=== PATIENT | male | born 1985 | race Caucasian/White ===

== ENCOUNTER 2016-11-28 17:23 | Emergency (ER) | payer BC, OTHER ==
[2016-11-28 18:19] VITALS: RESP 18
[2016-11-28] MEDS ORDERED: ONDANSETRON 4 MG/2 ML VIAL IVP STA (18:45)
[2016-11-28] MEDS ORDERED: SODIUM CHLORIDE 0.9% 1,000 ML IV STA (18:45)
[2016-11-28] MEDS ORDERED: METOCLOPRAMIDE 5 MG/ML 2 ML VIAL IVP STA (18:58)
[2016-11-28] MEDS ORDERED: diphenhydrAMINE 50 MG/ML 1 ML VIAL IVP STA (18:58)
[2016-11-28] MEDS ORDERED: ACETAMINOPHEN IV (For NPO) 1,000 MG in EMPTY BAG 1 BAG IVPB STA (18:59)
--- NOTE | 2016-11-28 19:01 | ED ---
General Adult HPI - General Chief complaint: Nausea/Vomiting/Diarrhea Stated complaint: Fever/nausea Time Seen by Provider: 11/28/16 18:45 Source: patient, RN notes reviewed Mode of arrival: ambulatory Limitations: no limitations - History of Present Illness Initial comments: Patient is a 31-year-old male chief complaint of one day of severe nausea, vomiting and diarrhea. He also reports that he has diffuse abdominal pain due to the amount of times he vomited. He states that he was seen in urgent care and was tested negative for the flu. He states that he has not been able to take any Motrin or Tylenol. Patient states that he is continuing to have a fever. He states that everywhere is hurting. He denies any blood in stools. He states that he was discharged from the urgent care with Zofran however does not help. Patient states that he has a history of a hiatal hernia which she takes omeprazole for acid reflux. Patient denies any other surgical or medical history. He denies any history of sick contacts. - Related Data Home Medications Medication Instructions Recorded Confirmed Ibuprofen [Motrin] 800 mg PO Q8H PRN 11/28/16 11/28/16 Omeprazole 40 mg PO DAILY 11/28/16 11/28/16 Ondansetron HCl [Zofran] 4 mg PO Q8H 11/28/16 11/28/16 Allergies Allergy/AdvReac Type Severity Reaction Status Date / Time No Known Allergies Allergy Verified 11/28/16 19:19 Review of Systems ROS Statement: Those systems with pertinent positive or pertinent negative responses have been documented in the HPI. ROS Other: All systems not noted in ROS Statement are negative. Past Medical History Additional Past Medical History / Comment(s): GI BLEED , HERNIA History of Any Multi-Drug Resistant Organisms: None Reported Past Surgical History: No Surgical Hx Reported Past Psychological History: No Psychological Hx Reported Smoking Status: Never smoker Past Alcohol Use History: None Reported Past Drug Use History: None Reported General Exam - General Exam Comments Initial Comments: Pleasant 31-year-old male. Patient does appear to be in discomfort. Limitations: no limitations General appearance: alert, in no apparent distress Head exam: Present: atraumatic, normocephalic, normal inspection Eye exam: Present: normal appearance, PERRL, EOMI. Absent: scleral icterus, conjunctival injection, periorbital swelling ENT exam: Present: normal exam, mucous membranes moist Neck exam: Present: normal inspection. Absent: tenderness, meningismus, lymphadenopathy Respiratory exam: Present: normal lung sounds bilaterally. Absent: respiratory distress, wheezes, rales, rhonchi, stridor Cardiovascular Exam: Present: regular rate, normal rhythm, normal heart sounds. Absent: systolic murmur, diastolic murmur, rubs, gallop, clicks GI/Abdominal exam: Present: soft, tenderness (diffuse abdominal tenderness. ), normal bowel sounds, other. Absent: distended, guarding, rebound, rigid Extremities exam: Present: normal inspection, full ROM, normal capillary refill. Absent: tenderness, pedal edema, joint swelling, calf tenderness Back exam: Present: normal inspection Neurological exam: Present: alert, oriented X3, CN II-XII intact Psychiatric exam: Present: normal affect, normal mood Skin exam: Present: warm, dry, intact, normal color. Absent: rash Course Vital Signs 11/28/16 11/28/16 11/28/16 18:13 21:03 22:15 Temperature 100.9 F H 99.1 F 97.8 F Pulse Rate 104 H 101 H Respiratory 18 18 Rate Blood Pressure 99/67 131/66 O2 Sat by Pulse 97 95 Oximetry Medical Decision Making - Medical Decision Making Patient is a 31-year-old male chief complaint of one day of severe nausea, vomiting and diarrhea. He also reports that he has diffuse abdominal pain due to the amount of times he vomited. He states that he was seen in urgent care and was tested negative for the flu. He states that he has not been able to take any Motrin or Tylenol. Patient states that he is continuing to have a fever. He states that everywhere is hurting. He denies any blood in stools. He states that he was discharged from the urgent care with Zofran however does not help. Patient states that he has a history of a hiatal hernia which she takes omeprazole for acid reflux. Patients labs were reviewed, elevated lactic of 2.3. RElated to dehydration and vomiting. Given PAtients fever and diffuse tenderness, CT scan obtained. CT negative for any acute process. PAtient reports he is feeling much better after fluids. Patietn will be discharged at this time. Discussed viral gastroenteritis, and to continue to take motrin and tylenol and take prescription of zofran from urgent care. Patient understands treatment plan and will comply. Return parameters discussed. - Lab Data Result diagrams: 11/28/16 19:34 11/28/16 19:34 Lab Results 11/28/16 11/28/16 11/28/16 Range/Units 19:34 19:34 19:34 WBC 9.7 (3.8-10.6) k/uL RBC 5.81 (4.30-5.90) m/uL Hgb 17.4 (13.0-17.5) gm/dL Hct 50.1 (39.0-53.0) % MCV 86.3 (80.0-100.0) fL MCH 29.9 (25.0-35.0) pg MCHC 34.7 (31.0-37.0) g/dL RDW 13.1 (11.5-15.5) % Plt Count 252 (150-450) k/uL Neutrophils % 90 % Lymphocytes % 5 % Monocytes % 4 % Eosinophils % 0 % Basophils % 0 % Neutrophils # 8.7 H (1.3-7.7) k/uL Lymphocytes # 0.5 L (1.0-4.8) k/uL Monocytes # 0.4 (0-1.0) k/uL Eosinophils # 0.0 (0-0.7) k/uL Basophils # 0.0 (0-0.2) k/uL Sodium 143 (137-145) mmol/L Potassium 4.1 (3.5-5.1) mmol/L Chloride 103 (98-107) mmol/L Carbon Dioxide 24 (22-30) mmol/L Anion Gap 16 mmol/L BUN 18 (9-20) mg/dL Creatinine 1.30 H (0.66-1.25) mg/dL Est GFR (MDRD) Af Amer >60 (>60 ml/min/1.73 sqM) Est GFR (MDRD) Non-Af >60 (>60 ml/min/1.73 sqM) Glucose 114 H (74-99) mg/dL Plasma Lactic Acid Luis 2.5 H* (0.7-2.0) mmol/L Calcium 9.4 (8.4-10.2) mg/dL Total Bilirubin 1.4 H (0.2-1.3) mg/dL AST 38 (17-59) U/L ALT 73 H (21-72) U/L Alkaline Phosphatase 105 (38-126) U/L Total Protein 8.0 (6.3-8.2) g/dL Albumin 4.7 (3.5-5.0) g/dL Amylase 55 (30-110) U/L Lipase 108 (23-300) U/L Influenza Type A RNA (Not Detectd) Influenza Type B (PCR) (Not Detectd) 11/28/16 Range/Units 19:34 WBC (3.8-10.6) k/uL RBC (4.30-5.90) m/uL Hgb (13.0-17.5) gm/dL Hct (39.0-53.0) % MCV (80.0-100.0) fL MCH (25.0-35.0) pg MCHC (31.0-37.0) g/dL RDW (11.5-15.5) % Plt Count (150-450) k/uL Neutrophils % % Lymphocytes % % Monocytes % % Eosinophils % % Basophils % % Neutrophils # (1.3-7.7) k/uL Lymphocytes # (1.0-4.8) k/uL Monocytes # (0-1.0) k/uL Eosinophils # (0-0.7) k/uL Basophils # (0-0.2) k/uL Sodium (137-145) mmol/L Potassium (3.5-5.1) mmol/L Chloride (98-107) mmol/L Carbon Dioxide (22-30) mmol/L Anion Gap mmol/L BUN (9-20) mg/dL Creatinine (0.66-1.25) mg/dL Est GFR (MDRD) Af Amer (>60 ml/min/1.73 sqM) Est GFR (MDRD) Non-Af (>60 ml/min/1.73 sqM) Glucose (74-99) mg/dL Plasma Lactic Acid Luis (0.7-2.0) mmol/L Calcium (8.4-10.2) mg/dL Total Bilirubin (0.2-1.3) mg/dL AST (17-59) U/L ALT (21-72) U/L Alkaline Phosphatase (38-126) U/L Total Protein (6.3-8.2) g/dL Albumin (3.5-5.0) g/dL Amylase (30-110) U/L Lipase (23-300) U/L Influenza Type A RNA Not Detected (Not Detectd) Influenza Type B (PCR) Not Detected (Not Detectd) - Radiology Data Radiology results: report reviewed CT abdomen and pelvis is negative for any acute process. Disposition Clinical Impression: Dehydration, Gastroenteritis Disposition: HOME SELF-CARE Condition: Good Instructions: Acute Nausea and Vomiting (ED) Additional Instructions: Continue to take prescription prescribed nausea medication. Follow-up with a primary care provider. Return to emergency department if any alarming signs or symptoms occur. Continue using Motrin Tylenol for pain. Referrals: Jazlyn Epstein MD [STAFF PHYSICIAN] - 1-2 days Time of Disposition: 21:20
[2016-11-28 19:57] LABS: Basophils % (A) 0 %; CH 29.5; CHCM 34.3; Eosinophils % (A) 0 %; HCT 50.1 % (39.0-53.0); HDW 2.52; HGB 17.4 gm/dL (13.0-17.5); Luc # (Auto) 0.06; Luc % (Auto) 1; Lymphocytes # (A) 0.5 k/uL (1.0-4.8); Lymphocytes % (A) 5 %; MCH 29.9 pg (25.0-35.0); MCHC 34.7 g/dL (31.0-37.0); MCV 86.3 fL (80.0-100.0); Mean Platelet Volume 7.1; Monocytes # (A) 0.4 k/uL (0-1.0); Monocytes % (A) 4 %; Neutrophils # (A) 8.7 k/uL (1.3-7.7); Neutrophils % (A) 90 %; RBC 5.81 m/uL (4.30-5.90); RDW 13.1 % (11.5-15.5); WBC 9.7 k/uL (3.8-10.6); WBC (Perox) 9.89
[2016-11-28 20:04] LABS: ALT 73 U/L (21-72); AST 38 U/L (17-59); Alkaline Phosphatase 105 U/L (38-126); Amylase 55 U/L (30-110); Anion Gap 16 mmol/L; Blood Urea Nitrogen 18 mg/dL (9-20); Calcium 9.4 mg/dL (8.4-10.2); Carbon Dioxide 24 mmol/L (22-30); Chloride 103 mmol/L (98-107); Glucose 114 mg/dL (74-99); Non-African American GFR(MDRD) >60 (>60 ml/min/1.73 sqM); Potassium 4.1 mmol/L (3.5-5.1); Sodium 143 mmol/L (137-145); Total Bilirubin 1.4 mg/dL (0.2-1.3)
--- NOTE | 2016-11-28 20:17 | XR ---
EXAMINATION TYPE: XR chest 2V DATE OF EXAM: 11/28/2016 8:03 PM COMPARISON: NONE HISTORY: Pain and nausea and vomiting TECHNIQUE: Frontal and lateral views of the chest are obtained. FINDINGS: There is no focal air space opacity, pleural effusion, or pneumothorax seen. The cardiac silhouette size is within normal limits. The osseous structures are intact. IMPRESSION: No acute cardiopulmonary process.
[2016-11-28] MEDS ORDERED: RX INFO: IV CONTRAST WAS GIVEN 1 EACH MISC MISCELLANE PRN (20:19)
--- NOTE | 2016-11-28 20:19 | XR ---
EXAMINATION TYPE: XR KUB DATE OF EXAM: 11/28/2016 8:03 PM COMPARISON: NONE HISTORY: Pain and nausea and vomiting TECHNIQUE: 2 upright views FINDINGS: There are scattered 1 to 2 cm gas bubbles in what appears to be nondilated bowel, both smal l and large bowel. The pattern suggests fluid-filled bowel. There is no pneumatosis and no pneumoperitoneum. The soft tissues and skeletal structures are unremarkable. IMPRESSION: NO DEFINITE ACUTE PROCESS, ALTHOUGH RADIOGRAPHIC FEATURES CAN CORRELATE WITH A CLINICAL D IAGNOSIS OF GASTROENTERITIS.
[2016-11-28] MEDS ORDERED: SODIUM CHLORIDE 0.9% 1,000 ML IV ONE (20:20)
--- NOTE | 2016-11-28 21:14 | CT ---
EXAMINATION TYPE: CT abdomen pelvis w con DATE OF EXAM: 11/28/2016 8:46 PM COMPARISON: NONE HISTORY: Pt states of vomiting today. CT DLP: 1701 mGycm Automated exposure control for dose reduction was used. TECHNIQUE: Helical acquisition of images was performed from the lung bases through the pelvis. CONTRAST: Performed without Oral Contrast and with IV Contrast, patient injected with 100 mL of Omnip aque 300. FINDINGS: LUNG BASES: No significant abnormality is appreciated. LIVER/GB: No significant abnormality is appreciated. PANCREAS: No significant abnormality is seen. SPLEEN: No significant abnormality is seen. ADRENALS: No significant abnormality is seen. KIDNEYS: No significant abnormality is seen. RETROPERITONEAL ADENOPATHY: None visualized REPRODUCTIVE ORGANS: No significant abnormality is seen URINARY BLADDER: No significant abnormality is seen. PELVIC ADENOPATHY: None visualized. OSSEOUS STRUCTURES: No significant abnormality is seen. BOWEL: No significant abnormality is seen. IMPRESSION: NO ACUTE PROCESS.
[2016-11-28 22:16] VITALS: BP 131/66; PULSE 101; TEMP 97.8
== END 2016-11-28 22:15 | disposition home or self-care (01) ==
LOC: EC 17:23
DX: E86.0 Dehydration (principal); K52.9 Noninfective gastroenteritis and colitis, unspecified; Z79.899 Other long term (current) drug therapy
CPT/HCPCS: 36415; 80053; 82150; 83605; 83690; 85025; 87040; 87502; 71020; 74000; 74177; 99284; 96365; 96375 ×3; 96361; J1200; J2765; Q9967; J0131

== ENCOUNTER 2017-10-17 23:13 | Observation (INO) | payer BC, OTHER ==
[2017-10-17] MEDS ORDERED: SODIUM CHLORIDE 0.9% 1,000 ML IV STA (23:34)
[2017-10-17] MEDS ORDERED: ONDANSETRON 4 MG/2 ML VIAL IVP STA (23:34)
[2017-10-17] MEDS ORDERED: HYDROmorphone 0.5 MG/0.5 ML SYRINGE IVP STA (23:34)
[2017-10-17] MEDS ORDERED: MAG HYDROX/AL HYDROX/SIMETH 30 ML, HYOSCYAMINE ELIXIR 10 ML, CIMETIDINE HCL 300 MG, LID... PO STA ×4 (23:36)
--- NOTE | 2017-10-17 23:41 | ED ---
General Adult HPI <Trung Lopez - Last Filed: 10/18/17 02:15> - General Source: patient, RN notes reviewed Mode of arrival: ambulatory Limitations: no limitations <My Fatima - Last Filed: 10/18/17 02:53> - General Chief complaint: Chest Pain Stated complaint: chest pain Time Seen by Provider: 10/17/17 23:20 - History of Present Illness Initial comments: This is a 32-year-old male who presents to the emergency department with chief complaint of chest pain. Patient states that around 1 PM this afternoon he began to experience central chest/epigastric pain. He states that at 9 PM this evening he began vomiting. He states that at first it was brownish in color and then became pink. Patient states that he has a history of hiatal hernias and GI ulcers. He states that he has had episodes like this in the past when he has had a "rupture" of his hernia or ulcer. Patient states that the pain is constant and rates it as 8/10. He has intermittent sharp pain occurring every few seconds that he rates as 15/10. Patient does have a fever on presentation. He denies any recent fevers at home. He states that he has normal bowel habits. Denies any diarrhea or constipation. He states that he has been seen for his GI problems but has never had any abdominal surgeries. He states that he currently takes omeprazole and ibuprofen 800 for his knees. Denies shortness of breath, dizziness or headache. (My Fatima) - Related Data Home Medications Medication Instructions Recorded Confirmed Ibuprofen [Motrin] 800 mg PO BID PRN 11/28/16 10/17/17 Omeprazole 40 mg PO DAILY 11/28/16 10/17/17 Allergies Allergy/AdvReac Type Severity Reaction Status Date / Time No Known Allergies Allergy Verified 10/17/17 23:41 Review of Systems ROS Other: All systems not noted in ROS Statement are negative. <Trung Lopez - Last Filed: 10/18/17 02:15> ROS Other: All systems not noted in ROS Statement are negative. <My Fatima - Last Filed: 10/18/17 02:53> ROS Statement: Those systems with pertinent positive or pertinent negative responses have been documented in the HPI. Past Medical History Additional Past Medical History / Comment(s): GI BLEED , HERNIA History of Any Multi-Drug Resistant Organisms: None Reported Past Surgical History: No Surgical Hx Reported Past Psychological History: No Psychological Hx Reported Smoking Status: Never smoker Past Alcohol Use History: None Reported Past Drug Use History: None Reported <My Fatima - Last Filed: 10/18/17 02:53> General Exam <Trung Lopez - Last Filed: 10/18/17 02:15> Limitations: no limitations <My Fatima - Last Filed: 10/18/17 02:53> - General Exam Comments Initial Comments: General: Awake and alert, well-developed; patient grimacing in pain with arms held tightly across his abdomen. Appears very uncomfortable, lying on ED stretcher. Febrile. HEENT: Head atraumatic, normocephalic. Pupils are equal, round and reactive to light. Extraocular movements intact. Oropharynx moist without erythema or exudate. Neck: Supple. Normal ROM. Cardiovascular: Regular rhythm. Tachycardic. No murmurs, rubs or gallops. Chest symmetrical. Respiratory: Lungs clear to auscultation bilaterally. No wheezes, rales or rhonchi. Normal respiratory effort with no use of accessory muscles. Abdomen: Soft, non-distended. Exquisite tenderness with guarding on palpation of the epigastric region. No rigidity, rebound. Normal bowel sounds in all 4 quadrants. Skin: [place], warm and dry without rashes or lesions. Neurological: Alert and oriented x3. CN II-XII grossly intact. Speech is fluent and answers are appropriate. No focal neuro deficits. Psychiatric: Normal mood and affect. No overt depression or anxiety. (My Fatima) Course <Trung Lopez - Last Filed: 10/18/17 02:15> <My Fatima - Last Filed: 10/18/17 02:53> Vital Signs 10/17/17 10/18/17 10/18/17 23:15 01:33 01:55 Temperature 101.3 F H 101.9 F H Pulse Rate 129 H 117 H Respiratory 24 20 Rate Blood Pressure 114/60 130/58 O2 Sat by Pulse 99 94 L Oximetry - Reevaluation(s) Reevaluation #1: 10/18/17 02:15 Patient was reevaluated by myself, Dr. Lopez. Discomfort is moderate at this time. Patient has discomfort mostly in the epigastric region however is also in the lower sternal region. Moderate epigastric tenderness to palpation. Patient has had similar symptoms previously associated with hiatal hernia. Patient states he has previously been at the [facility] for this and they will not do surgery on him. Patient does have fever of unknown etiology. Influenza has been ordered. Case was discussed with Dr. Mckinley, who will admit for this [facility] patient. Echo will also be ordered. (Trung Lopez) EKG Findings - EKG Comments: EKG Findings:: EKG at 23:22:40. Sinus tachycardia. Cannot rule out anterior infarct, age undetermined. No ST segment elevation or depression. Ventricular rate 115 bpm, VT interval 128, QRS duration 96, QT/QTC 316/437. <My Fatima - Last Filed: 10/18/17 02:53> Medical Decision Making - Lab Data Result diagrams: 10/17/17 23:30 10/17/17 23:30 <Trung Lopez - Last Filed: 10/18/17 02:15> - Lab Data Result diagrams: 10/17/17 23:30 10/17/17 23:30 <My Fatima - Last Filed: 10/18/17 02:53> - Medical Decision Making This is a 32-year-old male who presents to the emergency department with chief complaint of chest/epigastric pain. Patient attributed this to his history of hiatal hernias and gastric ulcers. On initial presentation, EKG revealed sinus tachycardia. No ST segment elevation or depression. This was also reviewed by my attending physician, Dr. Lopez. On presentation, patient had a fever. He was given Tylenol and Motrin. Influenza was negative. Chest x-ray and KUB revealed no acute abnormalities. Patient did have a white count of 19.3 with a left shift at 17.2. Coagulation and d-dimer were within normal limits. CMP revealed a total creatine kinase at 552. CK-MB and troponins were negative. UA revealed a pH of 8.5 with 1+ protein and trace ketones. On reevaluation, patient continued to complain of tenderness in the epigastric region. CT with IV contrast of abdomen and pelvis was obtained. This revealed no abnormalities. This case was discussed with my attending physician, Dr. Lopez who then evaluated the patient. Patient will be admitted for observation with diagnosis of chest pain under Dr. Mckinley with consult to cardiology. Patient was made aware and is in agreement. All questions were answered. Vital signs are stable and he is in no acute distress. Fever origin is still unknown. (My Fatima) - Lab Data Lab Results 10/17/17 10/17/17 10/17/17 Range/Units 23:30 23:30 23:30 WBC 19.3 H (3.8-10.6) k/uL RBC 5.24 (4.30-5.90) m/uL Hgb 15.1 (13.0-17.5) gm/dL Hct 44.4 (39.0-53.0) % MCV 84.6 (80.0-100.0) fL MCH 28.8 (25.0-35.0) pg MCHC 34.1 (31.0-37.0) g/dL RDW 13.1 (11.5-15.5) % Plt Count 237 (150-450) k/uL Neutrophils % 89 % Lymphocytes % 5 % Monocytes % 4 % Eosinophils % 1 % Basophils % 0 % Neutrophils # 17.2 H (1.3-7.7) k/uL Lymphocytes # 0.9 L (1.0-4.8) k/uL Monocytes # 0.8 (0-1.0) k/uL Eosinophils # 0.2 (0-0.7) k/uL Basophils # 0.1 (0-0.2) k/uL PT (9.0-12.0) sec INR (<1.2) APTT (22.0-30.0) sec D-Dimer (<0.60) mg/L FEU Sodium 140 (137-145) mmol/L Potassium 3.8 (3.5-5.1) mmol/L Chloride 104 (98-107) mmol/L Carbon Dioxide 20 L (22-30) mmol/L Anion Gap 16 mmol/L BUN 15 (9-20) mg/dL Creatinine 1.20 (0.66-1.25) mg/dL Est GFR (MDRD) Af Amer >60 (>60 ml/min/1.73 sqM) Est GFR (MDRD) Non-Af >60 (>60 ml/min/1.73 sqM) Glucose 111 H (74-99) mg/dL Calcium 9.4 (8.4-10.2) mg/dL Magnesium 1.7 (1.6-2.3) mg/dL Total Bilirubin 1.2 (0.2-1.3) mg/dL AST 32 (17-59) U/L ALT 48 (21-72) U/L Alkaline Phosphatase 125 (38-126) U/L Total Creatine Kinase 552 H (55-170) U/L CK-MB (CK-2) 0.5 (0.0-2.4) ng/mL CK-MB (CK-2) Rel Index 0.1 Troponin I <0.012 (0.000-0.034) ng/mL Total Protein 7.7 (6.3-8.2) g/dL Albumin 4.7 (3.5-5.0) g/dL Amylase 50 (30-110) U/L Lipase 160 (23-300) U/L Urine Color Urine Appearance (Clear) Urine pH (5.0-8.0) Ur Specific [place] (1.001-1.035) Urine Protein (Negative) Urine Glucose (UA) (Negative) Urine Ketones (Negative) Urine Blood (Negative) Urine Nitrite (Negative) Urine Bilirubin (Negative) Urine Urobilinogen (<2.0) mg/dL Ur Leukocyte Esterase (Negative) Urine RBC (0-5) /hpf Urine WBC (0-5) /hpf Urine Mucus (None) /hpf Influenza Type A RNA (Not Detectd) Influenza Type B (PCR) (Not Detectd) 10/17/17 10/17/17 10/18/17 Range/Units 23:30 23:30 00:20 WBC (3.8-10.6) k/uL RBC (4.30-5.90) m/uL Hgb (13.0-17.5) gm/dL Hct (39.0-53.0) % MCV (80.0-100.0) fL MCH (25.0-35.0) pg MCHC (31.0-37.0) g/dL RDW (11.5-15.5) % Plt Count (150-450) k/uL Neutrophils % % Lymphocytes % % Monocytes % % Eosinophils % % Basophils % % Neutrophils # (1.3-7.7) k/uL Lymphocytes # (1.0-4.8) k/uL Monocytes # (0-1.0) k/uL Eosinophils # (0-0.7) k/uL Basophils # (0-0.2) k/uL PT 10.7 (9.0-12.0) sec INR 1.1 (<1.2) APTT 24.6 (22.0-30.0) sec D-Dimer 0.19 (<0.60) mg/L FEU Sodium (137-145) mmol/L Potassium (3.5-5.1) mmol/L Chloride (98-107) mmol/L Carbon Dioxide (22-30) mmol/L Anion Gap mmol/L BUN (9-20) mg/dL Creatinine (0.66-1.25) mg/dL Est GFR (MDRD) Af Amer (>60 ml/min/1.73 sqM) Est GFR (MDRD) Non-Af (>60 ml/min/1.73 sqM) Glucose (74-99) mg/dL Calcium (8.4-10.2) mg/dL Magnesium (1.6-2.3) mg/dL Total Bilirubin (0.2-1.3) mg/dL AST (17-59) U/L ALT (21-72) U/L Alkaline Phosphatase (38-126) U/L Total Creatine Kinase (55-170) U/L CK-MB (CK-2) (0.0-2.4) ng/mL CK-MB (CK-2) Rel Index Troponin I (0.000-0.034) ng/mL Total Protein (6.3-8.2) g/dL Albumin (3.5-5.0) g/dL Amylase (30-110) U/L Lipase (23-300) U/L Urine Color Yellow Urine Appearance Clear (Clear) Urine pH 8.5 H (5.0-8.0) Ur Specific [place] 1.021 (1.001-1.035) Urine Protein 1+ H (Negative) Urine Glucose (UA) Negative (Negative) Urine Ketones Trace H (Negative) Urine Blood Negative (Negative) Urine Nitrite Negative (Negative) Urine Bilirubin Negative (Negative) Urine Urobilinogen 2.0 (<2.0) mg/dL Ur Leukocyte Esterase Negative (Negative) Urine RBC <1 (0-5) /hpf Urine WBC 1 (0-5) /hpf Urine Mucus Rare H (None) /hpf Influenza Type A RNA (Not Detectd) Influenza Type B (PCR) (Not Detectd) 10/18/17 Range/Units 02:00 WBC (3.8-10.6) k/uL RBC (4.30-5.90) m/uL Hgb (13.0-17.5) gm/dL Hct (39.0-53.0) % MCV (80.0-100.0) fL MCH (25.0-35.0) pg MCHC (31.0-37.0) g/dL RDW (11.5-15.5) % Plt Count (150-450) k/uL Neutrophils % % Lymphocytes % % Monocytes % % Eosinophils % % Basophils % % Neutrophils # (1.3-7.7) k/uL Lymphocytes # (1.0-4.8) k/uL Monocytes # (0-1.0) k/uL Eosinophils # (0-0.7) k/uL Basophils # (0-0.2) k/uL PT (9.0-12.0) sec INR (<1.2) APTT (22.0-30.0) sec D-Dimer (<0.60) mg/L FEU Sodium (137-145) mmol/L Potassium (3.5-5.1) mmol/L Chloride (98-107) mmol/L Carbon Dioxide (22-30) mmol/L Anion Gap mmol/L BUN (9-20) mg/dL Creatinine (0.66-1.25) mg/dL Est GFR (MDRD) Af Amer (>60 ml/min/1.73 sqM) Est GFR (MDRD) Non-Af (>60 ml/min/1.73 sqM) Glucose (74-99) mg/dL Calcium (8.4-10.2) mg/dL Magnesium (1.6-2.3) mg/dL Total Bilirubin (0.2-1.3) mg/dL AST (17-59) U/L ALT (21-72) U/L Alkaline Phosphatase (38-126) U/L Total Creatine Kinase (55-170) U/L CK-MB (CK-2) (0.0-2.4) ng/mL CK-MB (CK-2) Rel Index Troponin I (0.000-0.034) ng/mL Total Protein (6.3-8.2) g/dL Albumin (3.5-5.0) g/dL Amylase (30-110) U/L Lipase (23-300) U/L Urine Color Urine Appearance (Clear) Urine pH (5.0-8.0) Ur Specific [place] (1.001-1.035) Urine Protein (Negative) Urine Glucose (UA) (Negative) Urine Ketones (Negative) Urine Blood (Negative) Urine Nitrite (Negative) Urine Bilirubin (Negative) Urine Urobilinogen (<2.0) mg/dL Ur Leukocyte Esterase (Negative) Urine RBC (0-5) /hpf Urine WBC (0-5) /hpf Urine Mucus (None) /hpf Influenza Type A RNA Not Detected (Not Detectd) Influenza Type B (PCR) Not Detected (Not Detectd) Disposition <Trung Lopez - Last Filed: 10/18/17 02:15> Time of Disposition: 02:51 <My Fatima - Last Filed: 10/18/17 02:53> Clinical Impression: Chest pain, Leukocytosis, Fever of unknown origin Disposition: ADMITTED IP TO THIS HOSP Condition: Stable Referrals: None,Stated [Primary Care Provider] - 1-2 days
[2017-10-17] MEDS ORDERED: ACETAMINOPHEN TAB 500 MG TAB PO STA (23:42)
[2017-10-17 23:48] LABS: HGB 15.1 gm/dL (13.0-17.5)
[2017-10-17 23:54] LABS: Basophils # (A) 0.1 k/uL (0-0.2); Basophils % (A) 0 %; Eosinophils # (A) 0.2 k/uL (0-0.7); Eosinophils % (A) 1 %; HCT 44.4 % (39.0-53.0); Lymphocytes # (A) 0.9 k/uL (1.0-4.8); Lymphocytes % (A) 5 %; MCH 28.8 pg (25.0-35.0); MCHC 34.1 g/dL (31.0-37.0); MCV 84.6 fL (80.0-100.0); Mean Platelet Volume 6.9; Monocytes # (A) 0.8 k/uL (0-1.0); Monocytes % (A) 4 %; Neutrophils # (A) 17.2 k/uL (1.3-7.7); Neutrophils % (A) 89 %; Platelet Count 237 k/uL (150-450); RBC 5.24 m/uL (4.30-5.90); RDW 13.1 % (11.5-15.5); WBC 19.3 k/uL (3.8-10.6)
[2017-10-17 23:57] LABS: INR 1.1 (<1.2); Partial Thromboplastin Time 24.6 sec (22.0-30.0); Prothrombin Time 10.7 sec (9.0-12.0)
[2017-10-18] LABS: ALT 48 U/L (21-72); AST 32 U/L (17-59); Albumin 4.7 g/dL (3.5-5.0); Alkaline Phosphatase 125 U/L (38-126); Amylase 50 U/L (30-110); Anion Gap 16 mmol/L; Blood Urea Nitrogen 15 mg/dL (9-20); Calcium 9.4 mg/dL (8.4-10.2); Carbon Dioxide 20 mmol/L (22-30); Chloride 104 mmol/L (98-107); Glucose 111 mg/dL (74-99); Lipase 160 U/L (23-300); Magnesium 1.7 mg/dL (1.6-2.3); Potassium 3.8 mmol/L (3.5-5.1); Sodium 140 mmol/L (137-145); Total Bilirubin 1.2 mg/dL (0.2-1.3); Total Protein 7.7 g/dL (6.3-8.2)
[2017-10-18 00:04] LABS: Creatine Kinase 552 U/L (55-170)
--- NOTE | 2017-10-18 00:15 | XR ---
EXAMINATION TYPE: XR chest 2V DATE OF EXAM: 10/18/2017 COMPARISON: 11/28/2016 HISTORY: Chest pain TECHNIQUE: Frontal and lateral views of the chest are obtained. FINDINGS: Heart and mediastinum are normal. Lungs are clear. Diaphragm is normal. Bony thorax is int act. There are chest leads. IMPRESSION: Normal chest. No change.
--- NOTE | 2017-10-18 00:16 | XR ---
EXAMINATION TYPE: XR KUB DATE OF EXAM: 10/18/2017 COMPARISON: 11/28/2016 HISTORY: Chest pain TECHNIQUE: 2 views FINDINGS: There is no sign of intestinal obstruction or pneumoperitoneum. Fecal pattern is normal. Th ere are no pathologic calcifications over the kidneys. Lung bases are clear. IMPRESSION: Nonacute abdomen. No change.
[2017-10-18 00:17] LABS: Creatine Kinase MB 0.5 ng/mL (0.0-2.4); Troponin I <0.012 ng/mL (0.000-0.034)
[2017-10-18 00:31] LABS: Appearance,Urine Clear (Clear); Bilirubin,Urine Negative (Negative); Blood,Urine Negative (Negative); Color,Urine Yellow; Glucose,Urine (UA) Negative (Negative); Ketones,Urine Trace (Negative); Leukocyte Esterase,Urine Negative (Negative); Mucus,Urine Rare /hpf; Nitrite,Urine Negative (Negative); PH, Urine 8.5 (5.0-8.0); Protein,Urine 1+ (Negative); RBC,Urine <1 /hpf (0-5); Specific Gravity,Urine 1.021 (1.001-1.035); WBC,Urine 1 /hpf (0-5)
[2017-10-18] MEDS ORDERED: SODIUM CHLORIDE 0.9% 1,000 ML IV STA (00:35)
[2017-10-18] MEDS ORDERED: RX INFO: IV CONTRAST WAS GIVEN 1 EACH MISC MISCELLANE PRN ×2 (00:38→15:40)
--- NOTE | 2017-10-18 01:13 | CT ---
EXAMINATION TYPE: CT abdomen pelvis w con DATE OF EXAM: 10/18/2017 COMPARISON: 11/28/2016 HISTORY: Prior on synapse, epigastric pain with nausea,vomiting, and fever, history of hiatal hernia and stomach ulcers that have ruptured in the past CT DLP: 1455.50 mGycm Automated exposure control for dose reduction was used. TECHNIQUE: Helical acquisition of images was performed from the lung bases through the pelvis. CONTRAST: Performed without Oral Contrast and with IV Contrast, patient injected with 100 mL of Omnipaque 300. FINDINGS: The lung bases are clear. There is no pleural effusion. Heart size is normal. Liver spleen pancreas gallbladder appear normal. Bile ducts are not dilated. There is no adrenal mass. Kidneys show satisfactory contrast opacification. There is no hydronephrosi s. There is no retroperitoneal adenopathy. There is no ascites. I see no intestinal wall thickening. There are no dilated loops. Appendix appears normal. Bladder distends smoothly. There is no sign of a pelvic mass. There is no free fluid. There is no evidence of free air. Bony structures appear intact . IMPRESSION: NEGATIVE CT SCAN OF THE ABDOMEN AND PELVIS. NORMAL APPENDIX. NO ADVERSE CHANGE COMPARED TO OLD EXAM.
[2017-10-18] MEDS ORDERED: HYDROmorphone 0.5 MG/0.5 ML SYRINGE IVP STA (01:24)
[2017-10-18] MEDS ORDERED: IBUPROFEN 600 MG TAB PO STA (01:54)
[2017-10-18] MEDS ORDERED: PANTOPRAZOLE 40 MG/10 ML VIAL IVP STA (02:14)
[2017-10-18] MEDS ORDERED: ACETAMINOPHEN TAB 325 MG TAB PO PRN (02:36)
[2017-10-18] MEDS ORDERED: NALOXONE 0.4 MG/ML 1 ML VIAL IV PRN (02:36)
[2017-10-18] MEDS ORDERED: ONDANSETRON 4 MG/2 ML VIAL IVP PRN (02:36)
[2017-10-18] MEDS: SODIUM CHLORIDE 0.9% 1,000 ML IV SCH ×2 (03:09→12:55)
[2017-10-18 04:01] VITALS: BMI 33.9
[2017-10-18] MEDS: HYDROmorphone 0.5 MG/0.5 ML SYRINGE IVP PRN ×4 (04:04→21:09)
[2017-10-18] MEDS: PANTOPRAZOLE 40 MG/10 ML VIAL IV SCH (09:19)
--- NOTE | 2017-10-18 10:36 | P.CRDCN ---
History of Present Illness Consult date: 10/18/17 Consult reason: chest pain History of present illness: Mr. Gates is a pleasant 32-year-old male past medical history significant for hiatal hernia and gastroesophageal reflux disease. He denies history of coronary artery disease and has never seen a science teacher for any reason. We have been asked to see him in consultation for complaints of chest pain. He states yesterday at approximately 1:00 in the afternoon while he was at work he started experiencing extreme burning and crushing sensation in the epigastric region. He could not specify any aggravating factors. He had not eaten since approximately 8:00 that morning. After the pain persisted he became very nauseous and started vomiting. He vomited approximately 4 times. He denies associated shortness of breath, dizziness, palpitations or diaphoresis. He states the pain has been persistent since yesterday with intermittent episodes of relief after he gets pain medication. The pain is worse when he tries to take a deep breath and is reproducible on palpation to the epigastric region. He states at one point yesterday the pain seems to move up and go across the front of his chest from shoulder to shoulder. The time of my exam he denies having any further episodes of radiation into the chest. EKG on arrival reveals sinus tachycardia. No acute ST or T-wave abnormalities. Telemetry tracings are unremarkable for arrhythmia with ongoing tachycardia in the 110-120 range. Chest x-ray is negative for an acute cardiopulmonary process. Abdominal x-ray reveals nonacute abdomen. CT abdomen and pelvis reveals normal appendix and no acute process. Laboratory data reviewed, d-dimer negative, WBC 19.3, hemoglobin 15.1, platelets 237, potassium 3.8, magnesium 1.7, creatinine 1.2, cardiac enzymes negative 1. He takes no cardiac medications. There is no old diagnostic testing to review. Review of Systems At the time of my exam: CONSTITUTIONAL: Denies fever. Denies chills. EYES: Denies blurred vision. Denies vision changes. Denies eye pain. EARS, NOSE, MOUTH & THROAT: Denies headache. Denies sore throat. Denies ear pain. CARDIOVASCULAR: Denies chest pain. Denies shortness of breath. Denies orthopnea. Denies PND. Denies palpitations. RESPIRATORY: Denies cough. GASTROINTESTINAL: Complains of epigastric burning. Denies diarrhea. Denies constipation. Complains of ongoing nausea with no further episodes of vomiting. MUSCULOSKELETAL: Denies myalgias. INTEGUMENTARY: Denies pruitis. Denies rash. NEUROLOGIC: Denies numbness. Denies tingling. Denies weakness. PSYCHIATRIC: Denies anxiety. Denies depression. ENDOCRINE: Denies fatigue. Denies weight change. Denies polydipsia. Denies polyurina. GENITOURINARY: Denies burning, hematuria or urgency with micturation. HEMATOLOGIC: Denies history of anemia. Denies bleeding. Past Medical History Past Medical History: GERD/Reflux Additional Past Medical History / Comment(s): GI BLEED , HERNIA, Tramatic brain injury History of Any Multi-Drug Resistant Organisms: None Reported Past Surgical History: No Surgical Hx Reported Smoking Status: Never smoker - Past Family History Father Family Medical History: No Reported History Mother Additional Family Medical History / Comment(s): Lupus Medications and Allergies Home Medications Medication Instructions Recorded Confirmed Type Ibuprofen [Motrin] 800 mg PO BID PRN 11/28/16 10/18/17 History Omeprazole 40 mg PO DAILY 11/28/16 10/18/17 History Allergies Allergy/AdvReac Type Severity Reaction Status Date / Time No Known Allergies Allergy Verified 10/18/17 03:52 Physical Exam Vitals: Vital Signs Temp Pulse Pulse Resp BP BP Pulse Ox 10/18/17 04:00 18 10/18/17 03:53 98.3 F 115 H 19 117/69 97 10/18/17 03:16 99.1 F 112 H 18 110/65 96 10/18/17 01:55 101.9 F H 10/18/17 01:33 117 H 20 130/58 94 L 10/17/17 23:15 101.3 F H 129 H 24 114/60 99 Intake and Output 10/17/17 10/18/17 10/18/17 22:59 06:59 14:59 Other: # Voids 1 Weight 116.6 kg Blood pressure 117/69 heart rate 115 afebrile GENERAL: This is a 32-year-old male in no apparent distress at the time of my examination. HEENT: Head is atraumatic, normocephalic. Pupils are equal, round. Sclerae anicteric. Conjunctivae are clear. Mucous membranes of the mouth are moist. Neck is supple. There is no jugular venous distention. No carotid bruit is heard. LUNGS: Clear to auscultation no wheezes, rales or rhonchi. No chest wall tenderness is noted on palpation or with deep breathing. HEART: Regular rate and rhythm without murmurs, rubs or gallops. S1 and S2 heard. ABDOMEN: Soft, tender epigastric region. Bowel sounds are heard. No organomegaly noted. EXTREMITIES: No evidence of peripheral edema and no calf tenderness noted. VASCULAR: Radial and dorsalis pedis pulses palpated, no evidence of clubbing. NEUROLOGIC: Patient is awake, alert and oriented x3. Results 10/17/17 23:30 10/17/17 23:30 Cardiac Enzymes 10/17/17 10/17/17 Range/Units 23:30 23:30 AST 32 (17-59) U/L CK-MB (CK-2) 0.5 (0.0-2.4) ng/mL Troponin I <0.012 (0.000-0.034) ng/mL Coagulation 10/17/17 Range/Units 23:30 PT 10.7 (9.0-12.0) sec APTT 24.6 (22.0-30.0) sec CBC 10/17/17 Range/Units 23:30 WBC 19.3 H (3.8-10.6) k/uL RBC 5.24 (4.30-5.90) m/uL Hgb 15.1 (13.0-17.5) gm/dL Hct 44.4 (39.0-53.0) % Plt Count 237 (150-450) k/uL Comprehensive Metabolic Panel 10/17/17 Range/Units 23:30 Sodium 140 (137-145) mmol/L Potassium 3.8 (3.5-5.1) mmol/L Chloride 104 (98-107) mmol/L Carbon Dioxide 20 L (22-30) mmol/L BUN 15 (9-20) mg/dL Creatinine 1.20 (0.66-1.25) mg/dL Glucose 111 H (74-99) mg/dL Calcium 9.4 (8.4-10.2) mg/dL AST 32 (17-59) U/L ALT 48 (21-72) U/L Alkaline Phosphatase 125 (38-126) U/L Total Protein 7.7 (6.3-8.2) g/dL Albumin 4.7 (3.5-5.0) g/dL Current Medications Generic Name Dose Route Start Last Admin Trade Name Freq PRN Reason Stop Dose Admin Acetaminophen 650 mg 10/18/17 02:36 Tylenol Tab PO Q6HR PRN Mild Pain or Fever > 100.5 Hydromorphone HCl 0.5 mg 10/18/17 02:36 Dilaudid IVP Q3HR PRN Moderate Pain Hydromorphone HCl 1 mg 10/18/17 02:36 10/18/17 06:55 Dilaudid IVP 1 mg Q3HR PRN Administration Severe Pain Sodium Chloride 1,000 mls @ 100 mls/hr 10/18/17 02:45 10/18/17 03:09 Saline 0.9% IV 100 mls/hr .Q10H MOHAN Administration Miscellaneous Information 1 each 10/18/17 00:38 10/18/17 00:41 Rx Info: Iv Contrast Was Given MISCELLANE 10/20/17 00:39 1 each DAILY PRN Administration Per Protocol Naloxone HCl 0.2 mg 10/18/17 02:36 Narcan IV Q2M PRN Opioid Reversal Ondansetron HCl 4 mg 10/18/17 02:36 Zofran IVP Q8HR PRN Nausea And Vomiting Pantoprazole Sodium 40 mg 10/18/17 09:00 Protonix IV DAILY MOHAN Intake and Output 10/17/17 10/18/17 10/18/17 22:59 06:59 14:59 Other: # Voids 1 Weight 116.6 kg 10/17/17 23:30 10/17/17 23:30 Assessment and Plan Assessment: ASSESSMENT 1. Epigastric burning with history of ulcer. No evidence of ischemia on EKG and negative cardiac enzymes. 2. History of ulcer 3. History of gastroesophageal reflux disease 4. Leukocytosis 5. Sinus tachycardia PLAN From cardiac perspective there is no indication for further work-up at this time. Echocardiogram ordered in emergency will be reviewed. His tachycardia most likely related to pain response as well as possible infection with some element of leukocytosis. Continue with medical management. Thank you kindly for this consultation. Nurse Practitioner note has been reviewed, I agree with a documented findings and plan of care. Patient was seen and examined.
--- NOTE | 2017-10-18 11:59 | ECHOF ---
Referral Reason:Chest pain MEASUREMENTS -------- HEIGHT: 182.9 cm WEIGHT: 116.6 kg BP: 117/69 RVIDd: 2.3 cm (< 3.3) IVSd: 1.2 cm (0.6 - 1.1) LVIDd: 4.7 cm (3.9 - 5.3) LVPWd: 1.3 cm (0.6 - 1.1) IVSs: 1.4 cm LVIDs: 4.2 cm LVPWs: 1.3 cm LA Diam: 3.2 cm (2.7 - 3.8) LAESV Index (A-L): 24.27 ml/m Ao Diam: 2.9 cm (2.0 - 3.7) AV Cusp: 1.9 cm (1.5 - 2.6) LA Diam: 3.5 cm (2.7 - 3.8) MV EXCURSION: 22.560 mm (> 18.000) MV EF SLOPE: 94 mm/s (70 - 150) EPSS: 0.3 cm MV E Drew: 0.86 m/s MV DecT: 161 ms MV A Drew: 0.60 m/s MV E/A Ratio: 1.43 RAP: 5.00 mmHg RVSP: 18.74 mmHg FINDINGS -------- Sinus rhythm. This was a technically good study. The left ventricular size is normal. There is borderline concentric left ventricular hypertrophy. Overall left ventricular systolic function is normal with, an EF between 55 - 60 %. The right ventricle is normal in size. Normal LA size by volume 22+/-6 ml/m2. The right atrial size is normal. The aortic valve is trileaflet, and appears structurally normal. No aortic stenosis or regurgitation. The mitral valve is normal. Mild mitral regurgitation is present. Mild tricuspid regurgitation present. There is no evidence of pulmonary hypertension. The right v entricular systolic pressure, as measured by Doppler, is 18.74mmHg. There is no pulmonic regurgitation present. The aortic root size is normal. There is no pericardial effusion. CONCLUSIONS -------- 1. Sinus rhythm. 2. The left ventricular size is normal. 3. There is borderline concentric left ventricular hypertrophy. 4. Overall left ventricular systolic function is normal with, an EF between 55 - 60 %. 5. Normal LA size by volume 22+/-6 ml/m2. 6. The aortic valve is trileaflet, and appears structurally normal. No aortic stenosis or regurgitati on. 7. Mild mitral regurgitation is present. 8. Mild tricuspid regurgitation present. 9. There is no evidence of pulmonary hypertension. 10. There is no pulmonic regurgitation present. 11. The aortic root size is normal. 12. There is no pericardial effusion. OUTBOUND TELEMARKETER: Lauren Merida RDCS
[2017-10-18] MEDS ORDERED: cefTRIAXone IN SWFI 1,000 MG/10 ML SYRINGE IVP SCH (13:45)
[2017-10-18] MEDS ORDERED: methylPREDNISolone SOD SUCCI 125 MG/2 ML VIAL IV STA (14:38)
[2017-10-18] MEDS ORDERED: ACETAMINOPHEN SUPPOSITORY 650 MG SUPP RECTAL STA (15:42)
--- NOTE | 2017-10-18 15:47 | P.HPIM ---
History of Present Illness H&P Date: 10/18/17 Chief Complaint: Abdominal pain Patient is a 32-year-old male with a known history of GERD, hiatal hernia and also history of traumatic brain injury came to the hospital with complaints of abdominal pain mainly in epigastric area started around 1 PM while he was at work yesterday. By 9 PM patient has been vomiting. His vomitus was brownish in color. Patient has been having constant pain 8 / 10. Otherwise denied any retrosternal chest pain. No headache or dizziness. No palpitations or diaphoresis. No radiation of the pain. Patient did have fever on admission. Denied any recent illnesses. No constipation no recent travel. Patient had endoscopy done 3 years ago showed hiatal hernia. Does not usually hold on pain medications. Today afternoon patient developed throat pain and swelling and we is hunter became mumbled. Patient did have fever and leukocytosis on admission. Lactic acidosis not present. Patient continues to have fever at this time. EKG showed sinus tachycardia Chest x-ray negative for any acute cardio pulmonary process D-dimer is negative CT abdomen pelvis revealed no acute abdominal process. WBC 19.3 Troponin 3 negative Influenza PCR negative and streptococcal throat swab negative Review of Systems Constitutional: Patient does have fever no chills. No generalized weakness or weight loss. Abdomen: Epigastric abdominal pain. No radiation. Patient does have nausea and 1 episode of vomiting Cardiovascular: Patient denies any chest pain or short of breath no palpitations. Respiratory: No cough or sputum production. No shortness of breath Neurologic: Patient denied any numbness or tingling headache. Musculoskeletal: Patient denies any complaints of joint swelling or deformity. Skin: Negative Psychiatric: Negative Endocrine: No heat or cold intolerance. No recent weight gain. Genitourinary: No dysuria or hematuria. All other 14 point ROS negative except the above Past Medical History Past Medical History: GERD/Reflux Additional Past Medical History / Comment(s): GI BLEED , HERNIA, Tramatic brain injury History of Any Multi-Drug Resistant Organisms: None Reported Past Surgical History: No Surgical Hx Reported Smoking Status: Never smoker - Past Family History Father Family Medical History: No Reported History Mother Additional Family Medical History / Comment(s): Lupus Medications and Allergies Home Medications Medication Instructions Recorded Confirmed Type Ibuprofen [Motrin] 800 mg PO BID PRN 11/28/16 10/18/17 History Omeprazole 40 mg PO DAILY 11/28/16 10/18/17 History Allergies Allergy/AdvReac Type Severity Reaction Status Date / Time No Known Allergies Allergy Verified 10/18/17 03:52 Physical Exam Vitals: Vital Signs Temp Pulse Pulse Resp BP BP Pulse Ox 10/18/17 11:35 99.1 F 119 H 16 132/50 96 10/18/17 08:00 98.6 F 96 16 110/68 97 10/18/17 04:00 18 10/18/17 03:53 98.3 F 115 H 19 117/69 97 10/18/17 03:16 99.1 F 112 H 18 110/65 96 10/18/17 01:55 101.9 F H 10/18/17 01:33 117 H 20 130/58 94 L 10/17/17 23:15 101.3 F H 129 H 24 114/60 99 Intake and Output 10/17/17 10/18/17 10/18/17 22:59 06:59 14:59 Other: Voiding Method Toilet # Voids 1 Weight 116.6 kg PHYSICAL EXAMINATION: Patient is lying in the bed comfortably, no acute distress, awake alert and oriented.. Not able to communicate properly due to throat swelling HEENT: Normocephalic. Neck is supple. Pupils reactive. Nostrils clear. Oral cavity is moist. Ears reveal no drainage. Swollen tonsils by laterally. No exudate. Neck reveals no JVD, carotid bruits, or thyromegaly. CHEST EXAMINATION: Trachea is central. Symmetrical expansion. Lung correa clear to auscultation and percussion. CARDIAC: Normal S1, S2 with no gallops. No murmurs ABDOMEN: Soft. Mild epigastric tenderness. Bowel sounds normal. No organomegaly. No abdominal bruits. Extremities: reveal no edema. No clubbing or cyanosis Neurologically awake, alert, oriented x3 with well-coordinated movements. Mumbled voice. No focal deficits noted Skin: No rash or skin lesions. Psychiatric: Cooperative. Nonsuicidal Musculoskeletal: No joint swelling or deformity. Normal range of motion. Results CBC & Chem 7: 10/17/17 23:30 10/17/17 23:30 Labs: Abnormal Lab Results - Last 24 Hours (Table) 10/17/17 10/17/17 10/17/17 Range/Units 23:30 23:30 23:30 WBC 19.3 H (3.8-10.6) k/uL Neutrophils # 17.2 H (1.3-7.7) k/uL Lymphocytes # 0.9 L (1.0-4.8) k/uL Carbon Dioxide 20 L (22-30) mmol/L Glucose 111 H (74-99) mg/dL Total Creatine Kinase 552 H (55-170) U/L Urine pH (5.0-8.0) Urine Protein (Negative) Urine Ketones (Negative) Urine Mucus (None) /hpf 10/18/17 Range/Units 00:20 WBC (3.8-10.6) k/uL Neutrophils # (1.3-7.7) k/uL Lymphocytes # (1.0-4.8) k/uL Carbon Dioxide (22-30) mmol/L Glucose (74-99) mg/dL Total Creatine Kinase (55-170) U/L Urine pH 8.5 H (5.0-8.0) Urine Protein 1+ H (Negative) Urine Ketones Trace H (Negative) Urine Mucus Rare H (None) /hpf Microbiology - Last 24 Hours (Table) 10/18/17 04:30 Group A Strep Throat Culture - Preliminary Throat Thrombosis Risk Factor Assmnt - DVT/VTE Prophylaxis DVT/VTE Prophylaxis: Pharmacologic Prophylaxis ordered Assessment and Plan Assessment: Throat swelling with difficulty speech and worsening pain. Possible acute tonsillitis / pharyngitis Sepsis due to patient has leukocytosis and fever and tachycardia. Epigastric abdominal pain likely due to gastritis and possible peptic ulcer disease GERD Hyperlipidemia DVT prophylaxis Plan: Patient will be started on antibiotics in the form of ceftriaxone and CT soft tissue neck will be obtained. Also started on Solu-Medrol 60 mg every 6 hourly. Continue the IV hydration and pain management. Monitor closely for any airway compromise. Continue with Protonix. ENT consult. Further recommendations based on the clinical course. Time with Patient: Greater than 30
--- NOTE | 2017-10-18 17:49 | CT ---
EXAMINATION TYPE: CT soft tissue neck w con DATE OF EXAM: 10/18/2017 5:24 PM COMPARISON: NONE HISTORY: Neck swelling and difficulty swallowing. CT DLP: 768 mGycm Automated exposure control for dose reduction was used. CONTRAST: CT scan of the neck is performed following with IV Contrast, patient injected with 100 mL of Omnipaqu e 300. Axial images are obtained, coronal and sagittal reformatted images are reviewed. FINDINGS: The parotid glands are symmetric. Submandibular salivary glands are symmetric. Epiglottis appears nor mal. There is normal contrast opacification of the carotid arteries and jugular veins. Thyroid gland is sy mmetric. The visualized trachea appears normal. The tonsils are symmetric. There is mild hypertrophy of the tonsils. There is some mild hypertrophy of the adenoids. These measure 1.7 cm. There is some t hickening of the soft tissues at the posterior base of the tongue adjacent to the epiglottis. The pre vertebral soft tissues are not enlarged. Cervical vertebra have normal alignment and spacing. IMPRESSION: There is some enlargement of the tonsils and adenoids consistent with inflammatory proce ss. There is suggestion of some thickening of the posterior base of the tongue that should be correla naif with the physical exam. This could also relate to inflammatory process. This measures up to 1.8 c m in thickness. No abscess seen.
[2017-10-18] MEDS: methylPREDNISolone SOD SUCCI 125 MG/2 ML VIAL IV SCH ×2 (20:34→22:09)
[2017-10-18] MEDS ORDERED: AMPICILLIN-SULBACTAM 3 GM in SODIUM CHLORIDE 0.9% 100 ML IVPB SCH (21:00)
--- NOTE | 2017-10-18 21:06 | PCN ---
PROCEDURE NOTE PROCEDURE NOTE: PREOPERATIVE DIAGNOSES: Tonsil and throat swelling. POSTOP DIAGNOSES: Acute tonsillitis, acute lingual tonsillitis. PROCEDURE PERFORMED: Flexible nasopharyngoscopy/laryngoscopy. ANESTHESIA: None. COMPLICATIONS: None. FINDINGS: See history and physical note for findings. DESCRIPTION OF THE PROCEDURE: The patient was in his hospital bed in a sitting position. Informed consent was obtained. Flexible laryngoscopy was performed through the left nasal cavity with a systematic evaluation of the left nasal cavity, nasopharynx, oropharynx, hypopharynx and larynx with the above findings from my consultation note noted with normal vocal cord mobility and good overall airway. The laryngoscope was then withdrawn. BLOOD LOSS: None. COMPLICATIONS: None. The patient tolerated the procedure well with no complications. MMODL / IJN: [id number] /
--- NOTE | 2017-10-18 21:06 | CONS ---
CONSULTATION REASON FOR CONSULTATION: Throat pain with inflammation. HISTORY: This is a 32-year-old white male who was admitted with epigastric abdominal pain which started yesterday. He also had some vomiting. He had he has had cardiology consult which was unremarkable. He has history of hiatal hernia and reflux and takes medication for this. He had not had a fever at home apparently. This afternoon started having a sore throat and felt some throat swelling. He did have a fever and leukocytosis on admission. States he does have sore throats periodically, but not tonsillitis diagnosed typically and does not go to the doctor for the sore throats. These generally resolve on their own. He did have influenza screen which was negative as well as a strep negative throat swab. He had elevated white blood cell count at 19,000. He had CT scan of the neck today which showed a tonsil and adenoid swelling as well as the base of tongue lingual tonsillar swelling. He has had no shortness of breath although does have some dysphagia/sore throat with swallowing. He has had had some mild fullness to the voice, but no stridor or actual hoarseness. PAST MEDICAL HISTORY: Is reflux and GERD, GI bleed, hiatal hernia. Traumatic brain injury. PAST SURGICAL HISTORY: None. SOCIAL HISTORY: Does not smoke. FAMILY HISTORY: Positive for lupus. MEDICATIONS: At home, ibuprofen, omeprazole. ALLERGIES: No known drug allergies. REVIEW OF SYSTEMS: Noncontributory other than as above. PHYSICAL EXAM: He is a well-developed adult white male in no acute distress. He does complain of a sore throat, but can communicate. He has some mild fullness to the voice. There is no stridor and he can tolerate his own secretions. HEENT. HEAD: Normocephalic and atraumatic. The ears bilaterally canals are clear. Tympanic membranes unremarkable mobile. Nose shows no drainage or obstruction. Mouth and throat shows tonsils +3 bilaterally. They are erythematous. There is mild exudate. Good oropharyngeal airway. No trismus. No asymmetry. NECK: Supple. There is minimal tender lymphadenopathy bilateral upper jugular chain nodes. The nasopharynx, hypopharynx and larynx with flexible laryngoscopy shows mild adenoid hypertrophy. There is mild purulence in the nasopharynx which appears postnasal. Mild lingual tonsillar hypertrophy with erythema and also some mild exudate at this level. Epiglottis well visualized and is normal. Larynx shows normal vocal cord mobility. No erythema and good airway. ASSESSMENT: 1. Acute tonsillitis. 2. Acute lingual tonsillitis. PLAN: The patient had been started on ceftriaxone and this will be changed to Unasyn for better anaerobic coverage. He has also already been started on steroids. This should help the patient improve symptomatically. Once he is able to swallow better then could be discharged on similar medications such as Augmentin and tapering oral steroids. The patient does not have a history of recurrent tonsillitis and therefore is not a particular candidate for tonsillectomy at this point. If there are questions or concerns, please feel free to contact me. Consultation 30 minutes with greater than 50% on counseling on the diagnosis and treatment. MMKRISTINL / IJN: [id number] /
[2017-10-18] MEDS ORDERED: diphenhydrAMINE 50 MG/ML 1 ML VIAL IVP PRN (22:22)
[2017-10-19] MEDS: SODIUM CHLORIDE 0.9% 1,000 ML IV SCH ×3 (03:26→17:49)
[2017-10-19] MEDS: methylPREDNISolone SOD SUCCI 125 MG/2 ML VIAL IV SCH ×4 (05:46→23:18)
[2017-10-19 07:38] LABS: Basophils % (A) 0 %; Eosinophils % (A) 0 %; HCT 45.8 % (39.0-53.0); HGB 15.1 gm/dL (13.0-17.5); Lymphocytes # (A) 0.9 k/uL (1.0-4.8); Lymphocytes % (A) 4 %; MCH 28.9 pg (25.0-35.0); MCV 87.5 fL (80.0-100.0); Monocytes # (A) 0.4 k/uL (0-1.0); Monocytes % (A) 2 %; Neutrophils # (A) 19.5 k/uL (1.3-7.7); Neutrophils % (A) 93 %; Platelet Count 209 k/uL (150-450); RBC 5.23 m/uL (4.30-5.90); RDW 13.1 % (11.5-15.5)
[2017-10-19 07:39] LABS: ALT 33 U/L (21-72); AST 17 U/L (17-59); Albumin 3.9 g/dL (3.5-5.0); Alkaline Phosphatase 107 U/L (38-126); Anion Gap 13 mmol/L; Blood Urea Nitrogen 13 mg/dL (9-20); Calcium 9.3 mg/dL (8.4-10.2); Carbon Dioxide 25 mmol/L (22-30); Chloride 104 mmol/L (98-107); Glucose 141 mg/dL (74-99); Potassium 4.5 mmol/L (3.5-5.1); Sodium 142 mmol/L (137-145); Total Bilirubin 0.8 mg/dL (0.2-1.3); Total Protein 6.8 g/dL (6.3-8.2)
[2017-10-19] MEDS: PANTOPRAZOLE 40 MG/10 ML VIAL IV SCH (09:45)
[2017-10-19] MEDS: cefTRIAXone IN SWFI 1,000 MG/10 ML SYRINGE IVP SCH (09:57)
[2017-10-19 19:57] VITALS: RESP 16
--- NOTE | 2017-10-19 23:37 | P.PN ---
Subjective Progress Note Date: 10/19/17 Principal diagnosis: Acute tonsillitis Patient is a 32-year-old male with a known history of GERD, hiatal hernia and also history of traumatic brain injury came to the hospital with complaints of abdominal pain mainly in epigastric area started around 1 PM while he was at work yesterday. By 9 PM patient has been vomiting. His vomitus was brownish in color. Patient has been having constant pain 8 / 10. Otherwise denied any retrosternal chest pain. No headache or dizziness. No palpitations or diaphoresis. No radiation of the pain. Patient did have fever on admission. Denied any recent illnesses. No constipation no recent travel. Patient had endoscopy done 3 years ago showed hiatal hernia. Does not usually hold on pain medications. Today afternoon patient developed throat pain and swelling and we is hunter became mumbled. Patient did have fever and leukocytosis on admission. Lactic acidosis not present. Patient continues to have fever at this time. EKG showed sinus tachycardia Chest x-ray negative for any acute cardio pulmonary process D-dimer is negative CT abdomen pelvis revealed no acute abdominal process. WBC 19.3 Troponin 3 negative Influenza PCR negative and streptococcal throat swab negative CT neck showed enlarged tonsils and adenoids consistent with inflammatory process 10/19/2017 Patient is able to speak well today. No fever no chills. Otherwise patient did have hives with Unasyn. Start back on ceftriaxone this time. Patient was seen by ENT recommends to continue antibiotics and steroids. Throat culture showed strep pyogenes. Clinically improving otherwise. All other review of systems negative except level current medications reviewed Objective - Vital Signs Vital signs: Vital Signs Temp 98.2 F 10/19/17 12:00 Pulse 103 H 10/19/17 12:00 Resp 18 10/19/17 12:00 BP 117/64 10/19/17 12:00 Pulse Ox 96 10/19/17 12:00 Intake & Output 10/18/17 10/19/17 10/19/17 18:59 06:59 18:59 Intake Total 1100 Balance 1100 Intake: IV 1100 Sodium Chloride 0.9% 1, 1100 000 ml @ 100 mls/hr IV . Q10H MOHAN Rx#:[id number] Other: Voiding Method Toilet Toilet Toilet # Voids 1 2 - Exam PHYSICAL EXAMINATION: Patient is lying in the bed comfortably, no acute distress, awake alert and oriented.. HEENT: Normocephalic. Neck is supple. Pupils reactive. Nostrils clear. Oral cavity is moist. Ears reveal no drainage. Neck reveals no JVD, carotid bruits, or thyromegaly. CHEST EXAMINATION: Trachea is central. Symmetrical expansion. Lung correa clear to auscultation and percussion. CARDIAC: Normal S1, S2 with no gallops. No murmurs ABDOMEN: Soft. Bowel sounds normal. No organomegaly. No abdominal bruits. Extremities: reveal no edema. No clubbing or cyanosis Neurologically awake, alert, oriented x3 with well-coordinated movements. No focal deficits noted Skin: No rash or skin lesions. Psychiatric: Coperative. Nonsuicidal Musculoskeletal: No joint swelling or deformity. Normal range of motion. - Labs CBC & Chem 7: 10/19/17 06:30 10/19/17 06:30 Labs: Abnormal Lab Results - Last 24 Hours (Table) 10/19/17 10/19/17 Range/Units 06:30 06:30 WBC 21.0 H (3.8-10.6) k/uL Neutrophils # 19.5 H (1.3-7.7) k/uL Lymphocytes # 0.9 L (1.0-4.8) k/uL Glucose 141 H (74-99) mg/dL Microbiology - Last 24 Hours (Table) 10/18/17 04:30 Group A Strep Throat Culture - Final Throat Strep pyogenes (grp a) Assessment and Plan Assessment: Throat swelling with difficulty speech and worsening pain. Secondary to acute tonsillitis with strep pyogenes Sepsis due to acute tonsillitis. patient has leukocytosis and fever and tachycardia. Epigastric abdominal pain likely due to gastritis and possible peptic ulcer disease GERD Hyperlipidemia DVT prophylaxis Plan: Patient will be started on antibiotics in the form of ceftriaxone and Solu- Medrol 60 mg every 6 hourly. Continue the IV hydration and pain management. Monitor closely for any airway compromise. Continue with Protonix. ENT is following. Further recommendations based on the clinical course. Time with Patient: Greater than 30
[2017-10-20] MEDS: SODIUM CHLORIDE 0.9% 1,000 ML IV SCH (06:03)
[2017-10-20] MEDS: methylPREDNISolone SOD SUCCI 125 MG/2 ML VIAL IV SCH ×2 (06:49→13:31)
[2017-10-20 07:27] LABS: Basophils % (A) 0 %; Eosinophils % (A) 0 %; HCT 43.9 % (39.0-53.0); HGB 13.9 gm/dL (13.0-17.5); Lymphocytes # (A) 1.2 k/uL (1.0-4.8); Lymphocytes % (A) 5 %; MCH 28.6 pg (25.0-35.0); MCHC 31.7 g/dL (31.0-37.0); MCV 90.2 fL (80.0-100.0); Monocytes # (A) 0.7 k/uL (0-1.0); Monocytes % (A) 3 %; Neutrophils # (A) 20.2 k/uL (1.3-7.7); Neutrophils % (A) 91 %; Platelet Count 256 k/uL (150-450); RBC 4.86 m/uL (4.30-5.90); RDW 13.2 % (11.5-15.5); WBC 22.2 k/uL (3.8-10.6)
[2017-10-20] MEDS ORDERED: PANTOPRAZOLE 40 MG TABLET PO SCH (07:30)
[2017-10-20 07:47] LABS: Anion Gap 11 mmol/L; Blood Urea Nitrogen 17 mg/dL (9-20); Calcium 9.4 mg/dL (8.4-10.2); Carbon Dioxide 26 mmol/L (22-30); Chloride 107 mmol/L (98-107); Glucose 134 mg/dL (74-99); Sodium 144 mmol/L (137-145)
[2017-10-20 07:48] LABS: Potassium 4.2 mmol/L (3.5-5.1)
[2017-10-20] MEDS: cefTRIAXone IN SWFI 1,000 MG/10 ML SYRINGE IVP SCH ×2 (09:00→13:28)
[2017-10-20 09:19] VITALS: BP 134/75; PULSE 91; TEMP 98
--- NOTE | 2017-11-19 21:59 | P.DS ---
Providers Date of admission: 10/18/17 02:18 Expected date of discharge: 10/20/17 Attending physician: Odalys Mckinley Consults: 10/18/17 02:37 Consult Physician Routine Consulting Provider: Alex Cole Consult Reason/Comments: chest pain Do you want consulting provider notified?: Yes 10/18/17 14:40 Consult Physician Routine Consulting Provider: Van Gallegos Consult Reason/Comments: throat pain & inflammation Do you want consulting provider notified?: Yes Primary care physician: Stated None Hospital Course: Discharge diagnosis Throat swelling with difficulty speech and worsening pain. Secondary to acute tonsillitis with strep pyogenes Sepsis due to acute tonsillitis. patient has leukocytosis and fever and tachycardia. Epigastric abdominal pain likely due to gastritis and possible peptic ulcer disease GERD Hyperlipidemia DVT prophylaxis Hospital course Patient is a 32-year-old male with a known history of GERD, hiatal hernia and also history of traumatic brain injury came to the hospital with complaints of abdominal pain mainly in epigastric area started around 1 PM while he was at work yesterday. By 9 PM patient has been vomiting. His vomitus was brownish in color. Patient has been having constant pain 8 / 10. Otherwise denied any retrosternal chest pain. No headache or dizziness. No palpitations or diaphoresis. No radiation of the pain. Patient did have fever on admission. Denied any recent illnesses. No constipation no recent travel. Patient had endoscopy done 3 years ago showed hiatal hernia. Does not usually hold on pain medications. Today afternoon patient developed throat pain and swelling and we is hunter became mumbled. Patient did have fever and leukocytosis on admission. Lactic acidosis not present. Patient continues to have fever at this time. EKG showed sinus tachycardia Chest x-ray negative for any acute cardio pulmonary process D-dimer is negative CT abdomen pelvis revealed no acute abdominal process. WBC 19.3 Troponin 3 negative Influenza PCR negative and streptococcal throat swab negative CT neck showed enlarged tonsils and adenoids consistent with inflammatory process 10/19/2017 Patient is able to speak well today. No fever no chills. Otherwise patient did have hives with Unasyn. Start back on ceftriaxone this time. Patient was seen by ENT recommends to continue antibiotics and steroids. Throat culture showed strep pyogenes. Clinically improving otherwise. 10/20/2017 Patient did improve clinically. Ambulating well in the hallway. Otherwise cleared for discharge and continue with antibiotic course as an outpatient. PHYSICAL EXAMINATION: Patient is lying in the bed comfortably, no acute distress, awake alert and oriented.. HEENT: Normocephalic. Neck is supple. Pupils reactive. Nostrils clear. Oral cavity is moist. Ears reveal no drainage. Neck reveals no JVD, carotid bruits, or thyromegaly. CHEST EXAMINATION: Trachea is central. Symmetrical expansion. Lung correa clear to auscultation and percussion. CARDIAC: Normal S1, S2 with no gallops. No murmurs ABDOMEN: Soft. Bowel sounds normal. No organomegaly. No abdominal bruits. Extremities: reveal no edema. No clubbing or cyanosis Neurologically awake, alert, oriented x3 with well-coordinated movements. No focal deficits noted Skin: No rash or skin lesions. Psychiatric: Coperative. Nonsuicidal Musculoskeletal: No joint swelling or deformity. Normal range of motion. Patient Condition at Discharge: Stable Plan - Discharge Summary New Discharge Prescriptions: New Cefuroxime Axetil [Ceftin] 500 mg PO BID 7 Days #14 tab methylPREDNISolone Dose Pack [Medrol Dose Pack] 4 mg PO DIRECTED #21 package Continue Omeprazole 40 mg PO DAILY Discontinued Ibuprofen [Motrin] 800 mg PO BID PRN PRN Reason: Pain Discharge Medication List Omeprazole 40 mg PO DAILY 11/28/16 [History] Cefuroxime Axetil [Ceftin] 500 mg PO BID 7 Days #14 tab 10/20/17 [Rx] methylPREDNISolone Dose Pack [Medrol Dose Pack] 4 mg PO DIRECTED #21 package 10/20/17 [Rx] Follow up Appointment(s)/Referral(s): None,Stated [Primary Care Provider] - 1-2 days Discharge Disposition: HOME SELF-CARE
== END 2017-10-20 16:40 | disposition home or self-care (01) ==
LOC: EC 23:13 → 3OBS 10-18 02:18
PROVIDERS: ADMIT Internal Medicine; ATTEND Internal Medicine
DX: J03.90 Acute tonsillitis, unspecified (principal); A40.9 Streptococcal sepsis, unspecified; R10.13 Epigastric pain; K21.9 Gastro-esophageal reflux disease without esophagitis; E78.5 Hyperlipidemia, unspecified; Z87.820 Personal history of traumatic brain injury; Z79.899 Other long term (current) drug therapy; R07.9 Chest pain, unspecified; Z83.2 Family history of diseases of the blood and blood-forming organs and certain disorders involving the immune mechanism; Z87.11 Personal history of peptic ulcer disease; K44.9 Diaphragmatic hernia without obstruction or gangrene
CPT/HCPCS: 31575; 99285; 96361 ×6; 96375 ×5; 96374 ×2; 96376 ×5; 36415; 93005; 93306; 85379; 80053 ×2; 80048; 82150; 82550; 82553; 83605; 83690; 83735; 84484; 85025 ×3; 85610; 85730; 81001; 87040; 87081; 87430; 87502; 71046; 74018; 70491; 74177; G0378 ×3; J1200; J2930 ×3; J2405; J0696 ×3; Q9967; J0295; C9113 ×2; J1170 ×2

== ENCOUNTER → 2018-08-12 | Outpatient (CLI) | payer SELFPAY | END | disposition home or self-care (01) | LOC: LABWHC1 12:13 | PROVIDERS: ATTEND Pathology Anatomic Pathology & Clinical Pathology | DX: Z53.9 Procedure and treatment not carried out, unspecified reason (principal) ==